=== PATIENT | female | born 1965 | race Hispanic/Latino ===

== ENCOUNTER 2017-09-17 07:31 | Emergency (ER) | payer OTHER, SELFPAY ==
[2017-09-17] MEDS ORDERED: Ondansetron ODT 4 MG TAB ONE (08:17)
[2017-09-17] MEDS ORDERED: Naproxen 500 MG TAB ONE (08:17)
[2017-09-17] MEDS ORDERED: AMOXicillin 250 MG CAP ONE (08:43)
[2017-09-17] MEDS ORDERED: Benzonatate 100 MG CAP ONE (08:43)
[2017-09-17] MEDS ORDERED: Oxymetazoline HCl 0.05% ( 15 ML ) ONE (08:54)
== END 2017-09-17 09:00 | disposition home or self-care (01) ==
LOC: MADERS 07:31
DX: J06.9 Acute upper respiratory infection, unspecified (principal)
CPT/HCPCS: 87081; 87430; 99283; Q0162